=== PATIENT | female | born 1945 | race Caucasian/White ===

== ENCOUNTER 2021-12-05 08:07 | Outpatient (CLI) | payer MEDICARE, BC, SELFPAY ==
[2021-12-05 12:41] LABS: Chloride* 101 mmol/L (96-114); Potassium* 3.7 mmol/L (3.6-5.1); Sodium* 140 mmol/L (135-149)
[2021-12-05 12:44] LABS: Carbon Dioxide* 29 mmol/L (20-32); Cholesterol* 148 mg/dL (90-199); Creatinine* 0.7 mg/dL (0.5-1.5); Estimated Glomerular Filt Rate 90 ml/min
[2021-12-05 12:45] LABS: Blood Urea Nitrogen* 12 mg/dL (7-30); Calcium* 9.4 mg/dL (8.4-10.6); Glucose* 103 mg/dL (60-115); HDL Cholesterol* 36 mg/dL (>=50); LDL Cholesterol Calculated 82 mg/dL (<100); Triglycerides* 149 mg/dL (40-149)
[2021-12-05 13:11] LABS: TSH With Reflex to FT4* 0.054 uIU/mL (0.270-4.200)
[2021-12-05 14:06] LABS: Free T4 Free Thyroxine* 1.19 ng/dL (0.70-1.85)
== END 2021-12-05 08:08 | disposition home or self-care (01) ==
PROVIDERS: PCP Family Medicine; Visit Provider Family Medicine
DX: I10 Essential (primary) hypertension (principal); E78.5 Hyperlipidemia, unspecified; E03.9 Hypothyroidism, unspecified
CPT/HCPCS: 80048; 80061; 84439; 84443; 84480

== ENCOUNTER 2023-05-22 13:01 | Outpatient (CLI) | payer MEDICARE, BC, SELFPAY | END 2023-05-22 13:02 | disposition home or self-care (01) | LOC: NFLDREF 05-23 06:10 | PROVIDERS: PCP Family Medicine; Referring Provider Family Medicine; Visit Provider Physician Assistant | DX: R30.0 Dysuria (principal); R35.0 Frequency of micturition | CPT/HCPCS: 87086 ==

== ENCOUNTER 2023-06-03 08:52 | Outpatient (CLI) | payer MEDICARE, BC, SELFPAY | END 2023-06-03 08:53 | disposition home or self-care (01) | PROVIDERS: PCP Family Medicine; Visit Provider Family Medicine | DX: E78.5 Hyperlipidemia, unspecified (principal); I10 Essential (primary) hypertension; E03.9 Hypothyroidism, unspecified | CPT/HCPCS: 80048; 80061; 84443 ==

== ENCOUNTER 2023-08-27 10:42 | Outpatient (CLI) | payer MEDICARE, BC, SELFPAY ==
--- OUTSIDE RECORDS SUMMARY | 2023-08-27 10:44 | XMS_ITS | Clinical Summary ---
Author Organization [facility] Address [address] [place] [address] Care Team Providers Care Machine Stapler Name Role Phone Rafael Guerrero MD Primary Care Provider [phone] Allergies Active Allergy Reactions Criticality Noted Date Comments Oxycodone Other (See Comments) 06/14/2020 hallucinations Medications Medication Sig Dispensed Refills Start Date End Date Status calcium carbonate (OS-CARLOTTA 500 MG ASA'CARSARMIUT. CA) 500 MG tablet Take 500 mg by mouth 2 times daily Active [place]-3 Fatty Acids (OMEGA-3 FISH OIL PO) Take 1 g by mouth daily Active FLUOXETINE HCL PO Take 40 mg by mouth daily Active LEVOTHYROXINE SODIUM PO Take 125 mcg by mouth daily Active METOPROLOL TARTRATE PO Take 25 mg by mouth 2 times daily Active OMEPRAZOLE PO Take 20 mg by mouth every morning Active SIMVASTATIN PO Take 20 mg by mouth At Bedtime Active order for DMEIndications:Stat us post total right knee replacement Equipment being ordered: Walker Wheels (E0155) and Walker ([id number]) Treatment Diagnosis: gait instability 1 each 0 03/27/2015 Active Multiple Vitamins-Minerals (MULTIVITAMIN WOMEN 50+) TABS Take by mouth daily Active cholecalciferol (VITAMIN D3) 25 mcg (1000 units) capsule Take 1-2 capsules by mouth daily Active aspirin (ASA) 325 MG EC tabletIndications:S tatus post total knee replacement, unspecified laterality Take 1 tablet (325 mg) by mouth daily 30 tablet 07/10/2020 Active senna-docusate (SENOKOT-S/PERICOLA CE) 8.6-50 MG tabletIndications:S tatus post total knee replacement, unspecified laterality Take 1-2 tablets by mouth 2 times daily Take while on oral narcotics to prevent or treat constipation. 30 tablet 07/10/2020 Active acetaminophen (TYLENOL) 325 MG tabletIndications:S tatus post total knee replacement, unspecified laterality Take 2 tablets (650 mg) by mouth every 4 hours as needed for other (mild pain) 100 tablet 07/10/2020 Active HYDROmorphone (DILAUDID) 2 MG tabletIndications:S tatus post total knee replacement, unspecified laterality Take 1 tablet (2 mg) by mouth every 3 hours as needed for severe pain 40 tablet 07/10/2020 Active Active Problems Problem Noted Date Diagnosed Date S/P total knee arthroplasty 07/10/2020 S/P TKR (total knee replacement) 03/27/2015 Social History Tobacco Use Types Packs/Day Years Used Date Smoking Tobacco: Never Smokeless Tobacco: Never Alcohol Use Standard Drinks/Week Comments Yes 0 (1 standard drink = 0.6 oz pur e alcohol) Occas Adolescent Education Answer Date Record ed Getting School Help Needed Not on file 11/22 Sex and Gender Information Value Date Recorded Sex Assigned at Not on file Gender Identity Not on file Sexual Orientation Not on file Last Filed Vital Signs Vital Sign Reading Time Taken Comments Blood Pressure 150/61 07/11/2020 7:56 AM CDT Pulse 62 07/11/2020 7:56 AM CDT Temperature 36.6 ??C (97.9 ??F) 07/11/2020 7:56 AM CD T Respiratory Rate 16 07/11/2020 7:56 AM CDT Oxygen Saturation 95% 07/11/2020 7:56 AM CDT Inhaled Oxygen Concentration - - Weight 107 kg (236 lb) 07/10/2020 9:08 AM CDT Height 165.1 cm (5' 5) 07/10/2020 9:08 AM CDT Body Mass Index 39.27 07/10/2020 9:08 AM CDT Plan of Treatment Not on file Medical Devices Implanted Type Area Erosion Control Specialist Device Identifier Shelf Expiration Date Model / Serial / Lot Bone Cement Simplex W/Tobramycin 6197-9-001 Implanted:Qty : 1 on 07/10/2020 by Cesar Kenney MD at [facility] Cement, Bone Left: Knee [employer] 06/30/2021 6197-9-001 / / [id number] Imp Patella Zim Knee All Samaria 32mm 66-0826-163-3 2 Implanted:Qty : 1 on 07/10/2020 by Cesar Kenney MD at [facility] Total Joint Componen t/Insert Left: Knee [employer] [id number] 05/24/2028 24-5558-984-3 2 / / [id number] Imp Tibial Zim Psn Laundry Presser Stm 5deg Sz El 97-5317-536-0 1 Implanted:Qty : 1 on 07/10/2020 by Cesar Kenney MD at [facility] Total Joint Componen t/Insert Left: Knee [employer] [id number] 12/16/2029 19-3244-837-0 1 / / [id number] Imp Comp Fem Zim Psn Ps Cmt Narrow Sz 7 Lt 33-0443-828-0 1 Implanted:Qty : 1 on 07/10/2020 by Cesar Kenney MD at [facility] Total Joint Componen t/Insert Left: Knee [employer] [id number] 09/19/2029 85-6090-858-0 1 / / [id number] Bone Cement Simplex Full Dose 6191-1-001 Implanted:Qty : 1 on 03/27/2015 by Cesar Kenney MD at [facility] Right: Knee [employer] 09/30/2017 6191-1-001 / / [id number] Imp Comp Femoral E Rt [id number] 2 Implanted:Qty : 1 on 03/27/2015 by Cesar Kenney MD at [facility] Right: Knee [employer] 11/30/202441-3509-793-5 2 / / [id number] Imp Comp Tibial Stemmed Zim Nexgen Size 3 Implanted:Qty : 1 on 03/27/2015 by Cesar Kenney MD at [facility] Right: Knee [employer] 11/30/2024 [id number] 1 [id number] Imp Art Surface Zim Nexgen Lps Ef 3-4 10mm 35-3689-653-1 0 Implanted:Qty : 1 on 03/27/2015 by Cesar Kenney MD at [facility] Right: Knee [employer] 09/24/202269-6472-367-1 0 / / [id number] Imp Comp Patella Zim Nexgen 8.5x32mm Implanted:Qty : 1 on 03/27/2015 by Cesar Kenney MD at [facility] Right: Knee [employer] 12/31/2022 [id number] 2 [id number] Persona Articular Surface Fixed Bearing Posterior Stabilized (Ps) Left 10mm Height Implanted:Qty : 1 on 07/10/2020 by Cesar Kenney MD at [facility] Left: Knee [employer] [id number] 06/30/2021 [id number] / / [id number] Advance Directives For more information, please contact: [phone] * Full Code (Latest Code Status on File) Date Activated Date Inactivated Comments 07/10/2020 4:46 PM 07/11/2020 1:20 PM All basic an d advanced life-sustaining interventions are performed as appropriate Question Answer Comments Code status determined by: Unable to dis cuss and no AD/POLST on file; continue PREVIOUSLY ORDERED code status * Full Code Date Activated Date Inactivated Comments 03/27/2015 11:51 AM 03/29/2015 5:49 PM Care Teams Machine Stapler Relationship Specialty Start Date End Date Rafael Guerrero MD PCP - General Family Medicine 06/05/20
--- OUTSIDE RECORDS SUMMARY | 2023-08-27 10:45 | XMS_ITS | Encounter Summary ---
Author Organization [facility] Address [address] [place] [address]. [place] [address] Care Team Providers Care Pastoral Worker Name Role Phone Doctor, None MD Primary Care Provider Unavailabl e Rafael Guerrero MD Primary Care Provider [phone] Encounter Details Date Type Department Care Team (Late st Contact Info) Description 03/01/2015 Orders Only [facility] [address] [place] [phone] Cesar Kenney MD [facility] [address] [facility] [address] [place] [address] Pre-operative laboratory examination (Primary Dx) Social History Tobacco Use Types Packs/Day Years Used Date Smoking Tobacco: Never Assessed Sex and Gender Information Value Date Recorded Sex Assigned at Not on file Gender Identity Not on file Sexual Orientation Not on file documented as of this encounter Plan of Treatment Not on file documented as of this encounter Results * Methicillin Resistant Staph Aureus PCR (03/16/2015 12:15 PM [facility]) Specimen Description [facility] Methicillin Resist/Sens S. aureus PCR Negative MRSA Negative: SA Positive MRSA target DNA not detected, presumed negative for MRSA colonization or the number of bacteria present may be below the limit of detection. Staphylococcus aureus target DNA detected, presumed positive for SA colonization. A positive test does not necessarily indicate the presence of viable organisms. It is, however, presumptive for the presence of SA. ??This result does not preclude MRSA nasal colonization. FDA approved assay performed using eigital GeneXpert(R) real-time PCR. [facility]G [facility] 03/16/2015 12:1 5 PM [facility] 03/16/2015 3:04 PM [facility] Cesar Kenney MD LAB - MICRO GENE RAL ORDERABLES [facility] [address] [place] [address], [facility] [address] [phone] documented in this encounter Visit Diagnoses Diagnosis Pre-operative laboratory examination- Primary Pre-procedural laboratory examination documented in this encounter Care Teams Pastoral Worker Relationship Specialty Start Date End Date Doctor, Rosalba, PCP - General 02/23/15 10/31/16 Rafael Guerrero MD PCP - General Family Medicine 06/05/20 documented as of this encounter
--- OUTSIDE RECORDS SUMMARY | 2023-08-27 10:45 | XMS_ITS | Referral Summary ---
Author Organization [facility] Address [address] [place] [address] Care Team Providers Care Consulting Database Administrator Name Role Phone Rafael Guerrero MD Primary Care Provider [phone] Allergies Active Allergy Reactions Criticality Noted Date Comments Oxycodone Other (See Comments) 06/14/2020 hallucinations Medications Medication Sig Dispensed Refills Start Date End Date Status calcium carbonate (OS-CARLOTTA 500 MG NOOKSACK. CA) 500 MG tablet Take 500 mg by mouth 2 times daily Active [place]-3 Fatty Acids (OMEGA-3 FISH OIL PO) Take [...] on file Medical Devices Implanted Type Area Wood Finisher Device Identifier Shelf Expiration Date Model / Serial / Lot Bone Cement Simplex W/Tobramycin 6197-9-001 Implanted:Qty : 1 on 07/10/2020 by Cesar Kenney MD at [facility] Cement, Bone Left: Knee [employer] 06/30/2021 6197-9-001 / / [id number] Imp Patella Zim Knee All [place] 32mm 18-5535-829-3 2 Implanted:Qty : 1 on 07/10/2020 by Cesar Kenney MD at [facility] Total Joint Componen t/Insert Left: Knee [employer] [id number] 05/24/2028 36-8060-087-3 2 / / [id number] Imp Tibial Zim Psn Wire Spooler Stm 5deg Sz El 92-5545-086-0 1 Implanted:Qty : 1 on 07/10/2020 by Cesar Kenney MD at [facility] Total Joint Componen t/Insert Left: Knee [employer] [id number] 12/16/2029 06-1352-263-0 1 / / [id number] Imp Comp Fem Zim Psn Ps Cmt Narrow Sz 7 Lt 75-6304-170-0 1 Implanted:Qty : 1 on 07/10/2020 by Cesar Kenney MD at [facility] Total Joint Componen t/Insert Left: Knee [employer] [id number] 09/19/2029 63-4459-286-0 1 / / [id number] Bone Cement Simplex Full Dose 6191-1-001 Implanted:Qty : 1 on 03/27/2015 by Cesar Kenney MD at [facility] Right: Knee [employer] 09/30/2017 6191-1-001 / / [id number] Imp Comp Femoral E Rt 62-2398-431-5 2 Implanted:Qty : 1 on 03/27/2015 by Cesar Kenney MD at [facility] Right: Knee [employer] 11/30/202416-9421-372-5 2 / / [id number] Imp Comp Tibial Stemmed Zim Nexgen Size 3 Implanted:Qty : 1 on 03/27/2015 by Cesar Kenney MD at [facility] Right: Knee [employer] 11/30/2024 10-4237-104-0 1 [id number] Imp Art Surface Zim Nexgen Lps Ef 3-4 10mm 58-7820-211-1 0 Implanted:Qty : 1 on 03/27/2015 by Cesar Kenney MD at [facility] Right: Knee [employer] 09/24/202226-0331-984-1 0 / / [id number] Imp Comp Patella Zim Nexgen 8.5x32mm Implanted:Qty : 1 on 03/27/2015 by Cesar Kenney MD at [facility] Right: Knee [employer] 12/31/2022 35-2329-941-3 2 [id number] Persona Articular Surface Fixed Bearing Posterior Stabilized (Ps) Left 10mm Height Implanted:Qty : 1 on 07/10/2020 by Cesar Kenney MD at [facility] Left: Knee [employer] [id number] 06/30/2021 [id number] / / [id number] Advance Directives For more information, please contact: [phone] * Full Code (Latest Code Status on [...] 11:51 AM 03/29/2015 5:49 PM Care Teams Consulting Database Administrator Relationship Specialty Start Date End Date Rafael Guerrero MD PCP - General Family Medicine 06/05/20
--- OUTSIDE RECORDS SUMMARY | 2023-08-27 10:45 | XMS_ITS | Clinical Summary ---
Author Organization [facility] Address [place], [place] [address] Care Team Providers Care Piano Refinisher Name Role Phone Jack Guerrero MD Primary Care Provider [phone] Allergies No known active allergies Medications Medication Sig Dispensed Refills Start Date End Date Status omeprazole (PRILOSEC) 20 mg capsule Take 1 capsule by mouth once daily before a meal. 0 05/21/2013 Active levothyroxine (SYNTHROID) 125 mcg tablet Take 1 tablet by mouth before breakfast. 0 05/21/2013 Active FLUoxetine (PROZAC) 40 mg capsule Take 1 capsule by mouth every morning. 0 05/21/2013 Active aspirin enteric coated (ASPIRIN LOW DOSE) 81 mg tablet Take 162 mg by mouth once daily with a meal. 0 05/21/2013 Active omega-3 fatty acids-vitamin E (FISH OIL) 1,000 mg cap Take 1 capsule by mouth once daily. 0 05/21/2013 Active metoprolol (LOPRESSOR) 25 mg tablet Take 1 tablet by mouth 2 times daily. 0 05/21/2013 Active hydroCHLOROthiazide (HCTZ) 25 mg tablet Take 25 mg by mouth once daily. Active simvastatin (ZOCOR) 20 mg tablet Take 20 mg by mouth at bedtime. Active Active Problems Problem Noted Date Diagnosed Date Age-related nuclear cataract, left 08/13/2019 Age-related nuclear cataract, right 07/30/2019 Routine adult health maintenance 05/21/2013 Overview: Colonoscopy 05/2013 normal repeat in 10 years Social History Tobacco Use Types Packs/Day Years Used Date Smoking Tobacco: Never Smokeless Tobacco: Never Tobacco Cessation:Counseling Given: No Alcohol Use Standard Drinks/Week Comments Not Currently 0 (1 standard drink = 0.6 oz pur e alcohol) Sex and Gender Information Value Date Recorded Sex Assigned at Not on file Gender Identity Not on file Sexual Orientation Not on file Obstetrics History Last Filed Vital Signs Vital Sign Reading Time Taken Comments Blood Pressure 134/66 08/24/2019 10:18 AM CDT Pulse 60 08/24/2019 10:18 AM CDT Temperature 36.7 ??C (98 ??F) 08/24/2019 9:48 AM CDT Respiratory Rate 16 08/24/2019 10:18 AM CDT Oxygen Saturation 99% 08/24/2019 10:18 AM CDT Inhaled Oxygen Concentration - - Weight 114 kg (251 lb 6.4 oz) 08/24/2019 8:07 AM CDT Height 164.5 cm (5' 4.76) 08/24/2019 8:07 AM CD T Body Mass Index 42.14 08/24/2019 8:07 AM CDT Plan of Treatment Health Maintenance Due Date Last Done Comments Tdap 1956 Depression screening for age 12+ 1957 BMI (ht and wt on same day) for age 18+ 06/12/1963 Hepatitis C screening for age 18-79 06/12/1963 Tetanus booster 1965 Zoster (shingles) series for age 50+ (1 of 2) 06/11/18 96 DEXA/DXA scan for age 65+ 2010 Pneumococcal series for age 65+ (1 of 1 - PCV) 011 COVID-19 vaccine series (2022-24 season) 3 Influenza for age 65+ 11/02/2023 Medical Devices Implanted Type Area Wax Ball Molder Device Identifier Shelf Expiration Date Model / Serial / Lot Iol Union +21.5 Tecnis Zcb00 - [id number] Implanted:Qty : 1 on 08/24/2019 by Mark Mclean MD at [facility] Opthalmology Implants Left: Eye [employer] 03/06/2023 ZCB00 21.5# / [id number] 1 / Iol Union +22 Tecnis Zcb00 - [id number] Implanted:Qty : 1 on 08/03/2019 by Mark Mclean MD at [facility] Right: Eye [employer] 03/22/2023 ZCB00 22.0# / [id number] 1 / Advance Directives * Full Code (Latest Code Status on File) Date Activated Date Inactivated Comments 08/24/2019 8:04 AM 08/24/2019 12:36 PM Question Answer Comments Code Status Discussion: Not Discussed * Full Code Date Activated Date Inactivated Comments 08/03/2019 7:55 AM 08/03/2019 2:26 PM Question Answer Comments Code Status Discussion: Not Discussed Care Teams Piano Refinisher Relationship Specialty Start Date End Date Jack Guerrero MD PCP - General Family Practice 07/30/19
--- OUTSIDE RECORDS SUMMARY | 2023-08-27 10:45 | XMS_ITS | Encounter Summary ---
Author Organization [facility] Address [address] [place] [address] Care Team Providers Care Marketing Automation Analyst Name Role Phone Rafael Guerrero MD Primary Care Provider [phone] Encounter Details Date Type Department Care Team (Late st Contact Info) Description 06/12/2020 Orders Only [facility] [address] [place] [address] Cesar Kenney MD [facility] [address] [place] [address] [place] [address] Pre-operative laboratory examination (Primary Dx) Social History Tobacco Use Types Packs/Day Years Used Date Smoking Tobacco: Never Alcohol Use Standard Drinks/Week Comments Yes 0 (1 standard drink = 0.6 oz pur e alcohol) Occas Sex and Gender Information Value Date Recorded Sex Assigned at Not on file Gender Identity Not on file Sexual Orientation Not on file COVID-19 Exposure Response Date Recorded In the last month, have you been in contact with someone who was confirmed or suspected to have Coronavirus / COVID-19? No / Unsure 06/14/2020 2:46 PM CDT documented as of this encounter Plan of Treatment Not on file documented as of this encounter Results * Asymptomatic COVID-19 Virus (Coronavirus) by PCR (07/06/2020 9:11 AM CDT) COVID-19 Virus PCR to [facility] - Source Nasopharyngeal 07/06/2020 9:16 AM CDT [facility] COVID-19 Virus PCR to [facility] - Result Test received-See reflex to IDDL test SARS CoV2 (COVID-19) Virus RT-PCR 07/06/2020 12:48 PM CDT [facility] Specimen from nasopharyngeal structure (specimen) 07/06/2020 9:11 AM CDT 07/06/2020 9:16 AM CDT Cesar Kenney MD LAB - MICRO GENE RAL ORDERABLES [facility] [address] [place] [address], [facility] [address] [place] [address] documented in this encounter Visit Diagnoses Diagnosis Pre-operative laboratory examination- Primary Pre-procedural laboratory examination documented in this encounter Care Teams Marketing Automation Analyst Relationship Specialty Start Date End Date Rafael Guerrero MD PCP - General Family Medicine 06/05/20 documented as of this encounter
--- NOTE | 2023-08-27 11:30 | CRLHL7_ITS ---
For Patients: As a result of the Century Cures Act, medical imaging exams and procedure reports are released immediately into your electronic medical record. You may view this report before your referring provider. If you have questions, please contact your health care provider. BILATERAL SCREENING MAMMOGRAM WITH COMPUTER-AIDED DETECTION AND TOMOSYNTHESIS TECHNIQUE: CC and MLO views were obtained. These mammographic images have been obtained using full-field digital technique. These mammographic images were interpreted with the benefit of computer-aided detection. Breast Tomosynthesis was used in this interpretation. COMPARISON FILM: 06/26/20, 01/02/18, 12/31/16. FINDINGS: The breasts are almost entirely fatty. IMPRESSION: There is no radiographic evidence for malignancy. ASSESSMENT: BI-RADS Category 1: Negative RECOMMENDATION: Routine screening mammogram in 1 year. A lay language report of this examination will be provided to the patient. Kye Ridley M.D. Diagnostic Radiologist [email or web address] SP/Dictated by: Kye Ridley MD @ 09/02/2023 12:26:00 PM (Electronically Signed)
== END 2023-08-27 10:43 | disposition home or self-care (01) ==
LOC: MAMMO 10:43
PROVIDERS: PCP Family Medicine; Visit Provider Family Medicine
DX: Z12.31 Encounter for screening mammogram for malignant neoplasm of breast (principal)
CPT/HCPCS: 77063; 77067

== ENCOUNTER 2024-04-06 08:03 | Emergency (ER) | payer MEDICARE, BC, SELFPAY ==
[2024-04-06] VITALS (7 sets, daily range): BP systolic 153–183; BP diastolic 75–94; PULSE 48–58; RESP 20–24; TEMP 36.2; O2SAT 92–94; BMI 41.2
--- OUTSIDE RECORDS SUMMARY | 2024-04-06 08:05 | XMS_ITS | Clinical Summary ---
Author Organization [facility] Address [address] [place] [address] Care Team Providers Care Sales Account Leader Name Role Phone Rafael Guerrero MD Primary Care Provider [phone] Allergies Active Allergy Reactions Criticality Noted Date Comments Oxycodone Other (See Comments) 06/14/2020 hallucinations Medications calcium carbonate (OS-CARLOTTA 500 MG [place]. CA) 500 MG tablet Take 500 mg by mouth 2 times daily Active Woodman-3 Fatty Acids (OMEGA-3 FISH OIL PO) Take [...] by mouth At Bedtime Active order for DMEIndications:S tatus post total right knee replacement Equipment being ordered: Walker Wheels (E0155) and Walker (E0135) Treatment Diagnosis: gait instability 1 each 0 6 Active Multiple Vitamins-Mineral s (MULTIVITAMIN WOMEN 50+) TABS Take by mouth daily Active cholecalciferol (VITAMIN D3) 25 mcg (1000 units) capsule Take 1-2 capsules by mouth daily Active aspirin (ASA) 325 MG EC tabletIndication s:Status post total knee replacement, unspecified laterality Take 1 tablet (325 mg) by mouth daily 30 tablet 1 Active senna-docusate (SENOKOT-S/PERIC OLACE) 8.6-50 MG tabletIndication s:Status post total knee replacement, unspecified laterality Take 1-2 tablets by mouth 2 times daily Take while on oral narcotics to prevent or treat constipation. 30 tablet 1 Active acetaminophen (TYLENOL) 325 MG tabletIndication s:Status post total knee replacement, unspecified laterality Take 2 tablets (650 mg) by mouth every 4 hours as needed for other (mild pain) 100 tablet 1 Active HYDROmorphone (DILAUDID) 2 MG tabletIndication s:Status post total knee replacement, unspecified laterality Take 1 tablet (2 mg) by mouth every 3 hours as needed for severe pain 40 tablet 1 Active Active Problems Problem Noted Date Diagnosed [...] School Help Needed Not on file 11/22 Comments No Sex and Gender Information Value Date Recorded Sex Assigned at Not on file Legal Sex Female 9:35 AM ARCHITECT MARINE Gender Identity Not on file Sexual Orientation Not on file Last Filed Vital Signs Vital Sign Reading Time Taken Comments Blood Pressure 150/61 07/11/2020 7:56 AM CDT Pulse 62 07/11/2020 7:56 AM CDT Temperature 36.6 C (97.9 F) 07/11/2020 7:56 AM CDT Respiratory Rate 16 07/11/2020 7:56 AM CDT Oxygen Saturation 95% 07/11/2020 7:56 AM CDT Inhaled Oxygen Concentration - - Weight 107 kg (236 lb) 07/10/2020 9:08 AM CDT Height 165.1 cm (5' 5) 07/10/2020 9:08 AM CDT Body Mass Index 39.27 07/10/2020 9:08 AM CDT Plan of Treatment Not on file Medical Devices Implanted Type Area Concrete Inspector Device Identifier Shelf Expiration Date Model / Serial / Lot Bone Cement Simplex W/Tobramycin 6197-9-001 Implanted:Qty : 1 on 07/10/2020 by Cesar Kenney MD at [facility] Cement, Bone Left: Knee [employer] 06/30/2021 6197-9-001 / / [id number] Imp Patella Zim Knee All [place] 32mm 23-3760-104-3 2 Implanted:Qty : 1 on 07/10/2020 by Cesar Kenney MD at [facility] Total Joint Componen t/Insert Left: Knee [employer] [id number] 05/24/2028 62-9217-919-3 2 / / [id number] Imp Tibial Zim Psn Pediatrician/Medical Doctor Stm 5deg Sz El 56-0686-318-0 1 Implanted:Qty : 1 on 07/10/2020 by Cesar Kenney MD at [facility] Total Joint Componen t/Insert Left: Knee [employer] [id number] 12/16/2029 07-6897-948-0 1 / / [id number] Imp Comp Fem Zim Psn Ps Cmt Narrow Sz 7 Lt 09-2527-101-0 1 Implanted:Qty : 1 on 07/10/2020 by Cesar Kenney MD at [facility] Total Joint Componen t/Insert Left: Knee [employer] [id number] 09/19/2029 66-4720-351-0 1 / / [id number] Bone Cement Simplex Full Dose 6191-1-001 Implanted:Qty : 1 on 03/27/2015 by Cesar Kenney MD at [facility] Right: Knee [employer] 09/30/2017 6191-1-001 / / [id number] Imp Comp Femoral E Rt 51-7588-698-5 2 Implanted:Qty : 1 on 03/27/2015 by Cesar Kenney MD at [facility] Right: Knee [employer] 11/30/2024 64-9389-419-5 2 / / [id number] Imp Comp Tibial Stemmed Zim Nexgen Size 3 Implanted:Qty : 1 on 03/27/2015 by Cesar Kenney MD at [facility] Right: Knee [employer] 11/30/2024 54-7980-908-0 1 [id number] Imp Art Surface Zim Nexgen Lps Ef 3-4 10mm 41-2182-087-1 0 Implanted:Qty : 1 on 03/27/2015 by Cesar Kenney MD at [facility] Right: Knee [employer] 09/24/202250-8354-580-1 0 / [id number] Imp Comp Patella Zim Nexgen 8.5x32mm Implanted:Qty : 1 on 03/27/2015 by Cesar Kenney MD at [facility] Right: Knee [employer] 12/31/202282-9149-615-3 2 / [id number] Persona Articular Surface Fixed Bearing Posterior Stabilized (Ps) Left 10mm Height Implanted:Qty : 1 on 07/10/2020 by Cesar Kenney MD at [facility] Left: Knee [employer] [id number] 06/30/2021 [id number] / / [id number] Insurance MEDICARE [facility] Advance Directives For more information, please contact: [phone] * Full Code (Latest Code Status on File) Date Activated Date Inactivated Comments 07/10/2020 4:46 PM 07/11/2020 1:20 PM All basic a nd advanced life-sustaining interventions are performed as appropriate Question Answer Comments Code status determined by: Unable to dis cuss and no AD/POLST on file; continue PREVIOUSLY ORDERED code status * Full Code Date Activated Date Inactivated Comments 03/27/2015 11:51 AM 03/29/2015 5:49 PM Care Teams Sales Account Leader Relationship Specialty Start Date End Date Rafael Guerrero MD PCP - General Family Medicine 06/05/20
--- OUTSIDE RECORDS SUMMARY | 2024-04-06 08:05 | XMS_ITS | Encounter Summary ---
Author Organization [facility] Address [address] [place] [address] Care Team Providers Care Cio Name Role Phone Rafael Guerrero MD Primary Care Provider [phone] Encounter Details Date Type Department Care Team (Late st Contact Info) Description 06/12/2020 Orders Only [facility] [address] [place] [address] Cesar Kenney MD [facility] [address] [place] [address] Pre-operative laboratory examination (Primary Dx) Social History Tobacco Use Types Packs/Day Years Used Date Smoking Tobacco: Never Alcohol Use Standard Drinks/Week Comments Yes 0 (1 standard drink = 0.6 oz pur e alcohol) Occas Comments No Sex and Gender Information Value Date Recorded Sex Assigned at Not on file 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 Gender Identity Not on file Sexual Orientation [...] - Source Nasopharyngeal 07/06/2020 9:16 AM CDT [facility] COVID-19 Virus PCR to [facility] - Result Test received-See reflex to IDDL test SARS CoV2 (COVID-19) Virus RT-PCR 07/06/2020 12:48 PM CDT [facility] Specimen from nasopharyngeal structure (specimen) 07/06/2020 9:11 AM CDT 07/06/2020 9:16 AM CDT us Cesar Kenney MD LAB - MICRO GENERAL PALMER OBRIEN Final Result [facility] [address] [place] [address], [facility] [address] [place] [address] documented in this encounter Visit Diagnoses Diagnosis Pre-operative laboratory examination- Primary Pre-procedural laboratory examination documented in this encounter Care Teams Cio Relationship Specialty Start Date End Date Rafael Guerrero MD PCP - General Family Medicine 06/05/20 documented as of this encounter
--- OUTSIDE RECORDS SUMMARY | 2024-04-06 08:06 | XMS_ITS | Encounter Summary ---
Author Organization [facility] Address [address] [place] [address] Care Team Providers Care Climatology Professor Name Role Phone Doctor, None MD Primary Care Provider Unavailabl e Rafael Guerrero MD Primary Care Provider [phone] Encounter Details Date Type Department Care Team (Late st Contact Info) Description 03/01/2015 [facility] [address] [place] [id number] Cesar Kenney MD [facility] [address] [place] [address] Pre-operative laboratory examination (Primary Dx) Social History Tobacco Use Types Packs/Day Years Used Date Smoking Tobacco: Never Assessed Comments No Sex and Gender Information Value Date Recorded Sex Assigned at Not on file 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 aureus PCR Negative MRSA [...] however, presumptive for the presence of SA. This result does not preclude MRSA nasal colonization. FDA approved assay performed using [employer] buy tea GeneXpert(R) real-time PCR. NEG [facility] 03/16/2015 12:1 5 PM PREDICTIVE MAINTENANCE SPECIALIST 03/16/2015 3:04 PM PREDICTIVE MAINTENANCE SPECIALIST us Cesar Kenney MD LAB - MICRO GENERAL [place] OBRIEN Final Result [facility] [address] [place] [address], [facility] [address] [place] [address], [facility] [phone] documented in this encounter Visit Diagnoses Diagnosis Pre-operative laboratory examination- Primary Pre-procedural laboratory examination documented in this encounter Care Teams Climatology Professor Relationship Specialty Start Date End Date Doctor, None, PCP - General 02/23/15 10/31/16 Rafael Guerrero MD PCP - General Family Medicine 06/05/20 documented as of this encounter
--- OUTSIDE RECORDS SUMMARY | 2024-04-06 08:06 | XMS_ITS | Referral Summary ---
Author Organization [facility] Address [address] [place] [address] Care Team Providers Care School Bus Technician Name Role Phone Rafael Guerrero MD Primary Care Provider [phone] Allergies Active Allergy Reactions Criticality Noted Date Comments Oxycodone Other (See Comments) 06/14/2020 hallucinations Medications calcium carbonate (OS-CARLOTTA 500 MG [place]. 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 [id number] 05/24/2028 96-3140-197-3 2 / / [id number] Imp Tibial Zim Psn Nursing Faculty Stm 5deg Sz El 94-5556-440-0 1 Implanted:Qty : 1 on 07/10/2020 by Cesar Kenney MD at [facility] Total Joint Componen t/Insert Left: Knee [employer] [id number] 12/16/2029 54-2024-631-0 1 / / [id number] Imp Comp Fem Zim Psn Ps Cmt Narrow Sz 7 Lt 13-7069-512-0 1 Implanted:Qty : 1 on 07/10/2020 by Cesar Kenney MD at [facility] Total Joint Componen t/Insert Left: Knee [employer] [id number] 09/19/2029 14-4241-191-0 1 / / [id number] Bone Cement Simplex Full Dose 6191-1-001 Implanted:Qty : 1 on 03/27/2015 by Cesar Kenney MD at [facility] Right: Knee [employer] 09/30/2017 6191-1-001 / / [id number] Imp Comp Femoral E Rt 82-3450-149-5 2 Implanted:Qty : 1 on 03/27/2015 by Cesar Kenney MD at [facility] Right: Knee [employer] 11/30/2024 91-2269-292-5 2 / / [id number] Imp Comp Tibial Stemmed Zim Nexgen Size 3 Implanted:Qty : 1 on 03/27/2015 by Cesar Kenney MD at [facility] Right: Knee [employer] 11/30/2024 54-2159-974-0 1 [id number] Imp Art Surface Zim Nexgen Lps Ef 3-4 10mm 64-8260-785-1 0 Implanted:Qty : 1 on 03/27/2015 by Cesar Kenney MD at [facility] Right: Knee [employer] 09/24/202284-5801-669-1 0 / [id number] Imp Comp Patella Zim Nexgen 8.5x32mm Implanted:Qty : 1 on 03/27/2015 by Cesar Kenney MD at [facility] Right: Knee [employer] 12/31/202226-6360-450-3 2 / [id number] Persona Articular Surface Fixed Bearing Posterior Stabilized (Ps) Left 10mm Height Implanted:Qty : 1 on 07/10/2020 by Cesar Kenney MD at [facility] Left: Knee [employer] [id number] 06/30/2021 [id number] / / [id number] Insurance MEDICARE [facility] Advance Directives For more information, please contact: [phone] * Full Code (Latest Code Status on [...] 11:51 AM 03/29/2015 5:49 PM Care Teams School Bus Technician Relationship Specialty Start Date End Date Rafael Guerrero MD PCP - General Family Medicine 06/05/20
--- OUTSIDE RECORDS SUMMARY | 2024-04-06 08:06 | XMS_ITS | Clinical Summary ---
Author Organization [facility] Address [place], [place] [address] Care Team Providers Care Product Safety And Standards Engineer Name Role Phone Jack Guerrero MD Primary Care Provider [phone] Allergies No known active allergies Medications omeprazole (PRILOSEC) 20 mg capsule Take 1 [...] mouth 2 times daily. 0 05/21/2013 Active hydroCHLOROthia zide (HCTZ) 25 mg tablet Take 25 mg by mouth once daily. Active simvastatin (ZOCOR) 20 mg tablet Take 20 mg by mouth at bedtime. Active Active Problems Problem Noted Date Diagnosed Date Age-related nuclear cataract, left 08/13/2019 Age-related nuclear cataract, right 07/30/2019 Routine adult health maintenance 05/21/2013 Overview (05/21/2013): Colonoscopy 05/2013 normal repeat in 10 years Social History Tobacco Use Types Packs/Day Years Used Date Smoking Tobacco: Never Smokeless Tobacco: Never Tobacco Cessation:Counseling Given: No Alcohol Use Standard Drinks/Week Comments Not Currently 0 (1 standard drink = 0.6 oz pur e alcohol) Comments No Sex and Gender Information Value Date Recorded Sex Assigned at Not on file Legal Sex Female 1:02 PM CDT Gender Identity Not on file Sexual Orientation Not on file Obstetrics History Last Filed Vital Signs Vital Sign Reading Time Taken Comments Blood Pressure 134/66 08/24/2019 10:18 AM CDT Pulse 60 08/24/2019 10:18 AM CDT Temperature 36.7 C (98 F) 08/24/2019 9:48 AM CDT Respiratory Rate 16 [...] for age 18-79 06/12/1963 Tetanus booster 1965 Pneumococcal series for age 50+ (1 of 1 - PCV) 996 Zoster (shingles) series for age 50+ (1 of 2) 06/11/18 96 DEXA/DXA scan for age 65+ 2010 RSV vaccine for adults or pr egnancy (1 - 1-dose 75+ series) 2020 COVID-19 vaccine series ( - 2023-25 season) 4 Influenza for age 65+ 11/02/2023 Medical Devices Implanted Type Area Economic Research Analyst Device Identifier Shelf Expiration Date Model / Serial / Lot Iol [place] +21.5 Irena Zcb00 - [id number] Implanted:Qty : 1 on 08/24/2019 by Mark Mclean MD at [facility] Implants Left: Eye [employer] 03/06/2023 ZCB00 21.5# / [id number] 1 / Iol [place] +22 Tecnis Zcb00 - [id number] Implanted:Qty : 1 on 08/03/2019 by Mark Mclean MD at [facility] Right: Eye [employer] 03/22/2023 ZCB00 22.0# / [id number] 1 / Insurance MEDICARE PART A HB ONLY [employer] [place] BLUE HB ONLY MEDICARE PART B HB ONLY [facility] [employer] Advance Directives * Full Code (Latest Code Status on File) Date Activated Date Inactivated Comments 08/24/2019 8:04 AM 08/24/2019 12:36 PM Question Answer Comments Code Status Discussion: Not Discussed * Full Code Date Activated Date Inactivated Comments 08/03/2019 7:55 AM 08/03/2019 2:26 PM Question Answer Comments Code Status Discussion: Not Discussed Care Teams Product Safety And Standards Engineer Relationship Specialty Start Date End Date Jack Guerrero MD PCP - General Family Practice 07/30/19
--- NOTE | 2024-04-06 08:22 | ED_ITS ---
HPI - General Adult General Chief complaint: Shortness of Breath/Dyspnea Stated complaint: SOB/Gasping Time Seen by Provider: 04/06/24 08:22 History of Present Illness HPI narrative: Patient notes for the past few nights she' s woken up because she can 't breathe. No history asthma /COPD/sleep apnea per patient. Patient traveled back from [place] last week. Notes she's had a cough for the past few weeks. Notes her weight fluctuates a few pounds each week. 78-year-old woman presenting to the emergency department with concern of shortness of breath. Has had a couple of episodes now where will wake up in the middle the night mouth open just feeling she can not breathe. Can ambulate around though and then finally gets better. She does endorse serious snoring. Has never had a sleep study. She says that her doctor has told her that she has crackles in her right base all the time suspected secondary to some residual scarring how she phrases it. Over a very long period of time has also been experiencing increasing dyspnea with exertion that she has chalked up to just been ?fat?. Has not had any fever. Has had a little more cough over the last few weeks. Does not have a diagnosis of heart failure but does have a diagnosis of GERD. No changes in medications. Denies underlying respiratory disease otherwise. Has had maybe some increase in urinary frequency but otherwise no dysuria or urgency. Is describing that lying down lately feels more short of breath. Related Data Home Medications ?Medication ?Instructions ?Recorded ?Confirmed aspirin 81 mg capsule 81 mg PO QDAY 12/05/21 04/06/24 multivitamin 1 tab PO QAM 12/05/21 04/06/24 omega 8-tea-fbb-fish oil 300 1 cap PO BID 12/05/21 04/06/24 mg-1,000 mg capsule (Fish Oil) calcium 650 mg-vitamin D3 12.5 2 tab PO DAILY 06/03/23 04/06/24 mcg-vitamin K 40 mcg chewable tablet (Viactiv) Previous Rx's ?Medication ?Instructions ?Recorded fluoxetine 40 mg capsule 40 mg PO QDAY #90 caps 06/03/23 hydrochlorothiazide 25 mg tablet 25 mg PO BID #180 tabs 06/03/23 levothyroxine 125 mcg tablet 125 mcg PO QDAY #90 tabs 06/03/23 metoprolol tartrate 25 mg tablet 25 mg PO BID #180 tabs 06/03/23 omeprazole 20 mg capsule,delayed 20 mg PO QDAY #90 caps 06/03/23 release simvastatin 20 mg tablet 20 mg PO QHS #90 tabs 06/03/23 Allergies Allergy/AdvReac Type Severity Reaction Status Date / Time No Known Allergies Allergy Verified 04/06/24 08:12 Review of Systems Status of ROS: Reports: 6 or more systems reviewed and unremarkable except as noted in History and below [facility] Medical History Health care directive on file ?Z78.9 - Other specified health status (ICD-10) Surgical History Status post left knee replacement ?Z96.652 - Presence of left artificial knee joint (ICD-10) Status post 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) Status post right knee replacement ?Z96.651 - Presence of right artificial knee joint (ICD-10) Status post bunionectomy ?Z98.890 - Other specified postprocedural states (ICD-10) Status post appendectomy ?Z90.49 - Acquired absence of other specified parts of digestive tract (ICD- 10) History of cholecystectomy ?Z90.49 - Acquired absence of other specified parts of digestive tract (ICD- 10) Family History Other Colon cancer Social History Smoking Status: Never smoker How often do you have a drink containing alcohol: monthly or less How often do you have six or more drinks on one occasion: Weekly AUDIT-C Alcohol total score: 4 Non-prescribed substance use: denies use service: No Exam Narrative: Exam Narrative: Pleasant. Breathing easily. Initial oxygen saturation 94% during our conversation or 96%. Heart is little distant in regular rate and rhythm. Lungs with diffuse trace crepitus. No wheeze. Good air movement though. Lower extremities are without pitting edema. She is well-perfused. Moving all extremities without difficulty. No JVD appreciated Const: Vital Signs, click to edit/add: Vital Signs - 24 hr 04/06/24 11:19 04/06/24 12:22 04/06/24 12:23 Temperature 97.2 F L 97.2 F L Pulse Rate [Pulse Oximeter] 51 L 52 L 52 L Respiratory Rate 22 22 22 Blood Pressure [Ri ght Upper Arm] 172/75 H 153/94 H 153/94 H Pulse Oximetry 94 94 Oxygen Delivery Me thod Room Air Room Air Documenting provider has reviewed patient's vital signs: yes Course Vital Signs Vital signs: Initial Vital Signs Temperature 97.1 F L 04/06/24 08:07 Temperature Source Temporal Artery Scan 04/06/24 08:07 Pulse Rate 58 L 04/06/24 08:07 Respiratory Rate 22 04/06/24 08:07 Blood Pressure 160/83 H 04/06/24 08:07 Blood Pressure Mean 108 H 04/06/24 08:07 Blood Pressure Position Sitting 04/06/24 08:07 Pulse Oximetry 94 04/06/24 08:07 Oxygen Delivery Method Room Air 04/06/24 08:07 Vital Signs Temperature 97.1 F L 04/06/24 08:07 Pulse Rate 58 L 04/06/24 08:07 Respiratory Rate 22 04/06/24 08:07 Blood Pressure 160/83 H 04/06/24 08:07 Pulse Oximetry 94 04/06/24 08:07 Oxygen Delivery Method Room Air 04/06/24 08:07 Temperature 97.2 F L 04/06/24 12:23 Pulse Rate 52 L 04/06/24 12:23 Respiratory Rate 22 04/06/24 12:23 Blood Pressure 153/94 H 04/06/24 12:23 Pulse Oximetry 94 04/06/24 12:22 Oxygen Delivery Method Room Air 04/06/24 12:22 Medications Administered Medications: Discontinued Medications Generic Name Dose Route Start Last Admin Trade Name Freq PRN Reason Stop Dose Admin Furosemide 40 mg 04/06/24 11:15 04/06/24 11:14 Furosemide 10 Mg/Ml Inj IVP 04/06/24 11:16 Not Given ONCE ONE Medical Decision Making MDM Narrative Medical decision making narrative: I suspect a couple of different processes here. Certainly might be waking out of sleep secondary to episodes of sleep apnea. Might have reflux. May have evolving heart failure though over time. May have been an arrhythmia of some sort. Secondary infectious process to like recent influenza or pneumonia. Will begin evaluation. I see pulmonary fibrosis in diagnoses which could explain auscultation today as well. Has never had a cardiac echo. I am not convinced that would benefit from an nebulization. Oxygen level is a little lower from baseline. Have arranged for cardiac echo though it is much later today. Has not demonstrated instability where need to remain in the emergency department until that time. ProBNP is indeterminate at 797. Good renal function. Would be good to begin tracking baseline weights. I do not hear wheeze to make me think that there is reactive airway are would benefit from steroids or inhaler. Might benefit from diuresis. Have ordered for 40 mg of IV Lasix. I think would benefit from pulmonary function testing as well with these diagnoses I am seeing which include pulmonary fibrosis Otherwise well for discharge to return for echocardiogram. Has not demonstrated dysrhythmia/arrhythmia here today other than bradycardia. Is on relatively lower dose metoprolol. Might need to do longer-term rhythm monitoring. See patient discharge plan for further discussion We are testing you with a dose of furosemide. You might benefit from continuing furosemide. I am anticipating you a receiving an echocardiogram at 3:00 p.m.. If that does not work out then 1:00 p.m. tomorrow. Please begin keeping daily weights. I would like you schedule follow-up a since possible with your primary care provider. It sounds as though you would benefit from a study for sleep apnea. You might also benefit from a pulmonary function test. Would review again treatment for your blood pressure. A urine culture will be pending here. If this is positive we will call you to consider treatment. Return otherwise for persistent increasing shortness of breath, chest pain, lightheadedness. Discussed preliminary findings/tech report of echocardiogram with Ms. Weeks. Generally reassuring with an ejection fraction of 65% and absence of significant valvular disease. Final report pending Medical Records Medical records reviewed: Yes I reviewed the patient's medical records Lab Data Lab results reviewed: Yes I reviewed the patient's lab results Labs: Lab Results 04/06/24 04/06/24 04/06/24 Range/Units 08:38 09:15 09:24 WBC 7.74 (4.50-11.00) K/uL RBC 4.32 (4.00-5.20) m/uL Hgb 13.3 (12.0-16.0) gm/dL Hct 40.4 (33.0-51.0) % MCV 94 (80-100) fL MCH 31 (26-34) pg MCHC 33 (32-36) gm/dL RDW Coeff of Vidal 14.3 (11.5-15.5) % Plt Count 274 (140-440) K/uL Neut % (Auto) 61.2 (42.0-72.0) % Lymph % (Auto) 24.2 (20-44) % [place] % (Auto) 8.7 (0.0-11.0) % Eos % (Auto) 5.3 (0.0-7.0) % Baso % (Auto) 0.5 (0.0-3.0) % Neut # (Auto) 4.74 (1.7-7.0) K/uL Lymph # (Auto) 1.87 (0.90-2.90) K/uL [place] # (Auto) 0.70 (0.00-0.90) K/UL Eos # (Auto) 0.41 (0.00-0.50) K/uL Baso # (Auto) 0.04 (0.00-0.30) K/uL Abs Immat Gran (auto) 0.01 (0.00-0.30) K/uL Imm/Tot Granulo (auto) 0.1 % Sodium 138 (135-149) mmol/L Potassium 3.6 (3.6-5.1) mmol/L Chloride 101 (96-114) mmol/L Carbon Dioxide 28 (20-32) mmol/L Anion Gap 9 (7-15) mEq/L BUN 13 (7-30) mg/dL Creatinine 0.8 (0.5-1.5) mg/dL Estimated Creat Clear 40.04 Estimated GFR 75 ml/min Glucose 101 (60-115) mg/dL Calcium 9.2 (8.4-10.6) mg/dL Troponin I < 0.01 L (0.01-0.04) ng/mL NT-Pro-B Natriuret Pep 797 pg/mL Urine Color (Yellow) Urine Appearance (Clear) Urine pH (5.0-8.5) Ur Specific [place] (1.000-1.030) Urine Protein (Negative) Urine Glucose (UA) (Negative) Urine Ketones (Negative) Urine Blood (Negative) Urine Nitrite (Negative) Urine Bilirubin (Negative) Urine Urobilinogen (0.2-1.0) Ur Leukocyte Esterase (Negative) Urine RBC (0-2) Urine WBC (0-5) Ur Squamous Epith Cells (None-Few) Urine Bacteria (None) SARS-CoV-2 (PCR) Negative SARS-CoV-2 (Negative) Influenza Type A (PCR) Negative PCR FLU A (Negative) Influenza Type B (PCR) Negative PCR FLU B (Negative) RSV (PCR) Negative PCR RSV (Negative) POC Troponin I 0.01 (0.01-0.04) ng/ml 04/06/24 Range/Units 10:09 WBC (4.50-11.00) K/uL RBC (4.00-5.20) m/uL Hgb (12.0-16.0) gm/dL Hct (33.0-51.0) % MCV (80-100) fL MCH (26-34) pg MCHC (32-36) gm/dL RDW Coeff of Vidal (11.5-15.5) % Plt Count (140-440) K/uL Neut % (Auto) (42.0-72.0) % Lymph % (Auto) (20-44) % [place] % (Auto) (0.0-11.0) % Eos % (Auto) (0.0-7.0) % Baso % (Auto) (0.0-3.0) % Neut # (Auto) (1.7-7.0) K/uL Lymph # (Auto) (0.90-2.90) K/uL [place] # (Auto) (0.00-0.90) K/UL Eos # (Auto) (0.00-0.50) K/uL Baso # (Auto) (0.00-0.30) K/uL Abs Immat Gran (auto) (0.00-0.30) K/uL Imm/Tot Granulo (auto) % Sodium (135-149) mmol/L Potassium (3.6-5.1) mmol/L Chloride (96-114) mmol/L Carbon Dioxide (20-32) mmol/L Anion Gap (7-15) mEq/L BUN (7-30) mg/dL Creatinine (0.5-1.5) mg/dL Estimated Creat Clear Estimated GFR ml/min Glucose (60-115) mg/dL Calcium (8.4-10.6) mg/dL Troponin I (0.01-0.04) ng/mL NT-Pro-B Natriuret Pep pg/mL Urine Color Yellow (Yellow) Urine Appearance Clear (Clear) Urine pH 6.0 (5.0-8.5) Ur Specific [place] 1.015 (1.000-1.030) Urine Protein Trace A (Negative) Urine Glucose (UA) Negative (Negative) Urine Ketones Negative (Negative) Urine Blood Trace-intact A (Negative) Urine Nitrite Negative (Negative) Urine Bilirubin Negative (Negative) Urine Urobilinogen 0.2 (0.2-1.0) Ur Leukocyte Esterase 1+ A (Negative) Urine RBC 2-5 A (0-2) Urine WBC 25-50 A (0-5) Ur Squamous Epith Cells Moderate A (None-Few) Urine Bacteria Moderate A (None) SARS-CoV-2 (PCR) (Negative) Influenza Type A (PCR) (Negative) Influenza Type B (PCR) (Negative) RSV (PCR) (Negative) POC Troponin I (0.01-0.04) ng/ml ECG Data Attestation: I personally reviewed and interpreted this ECG as follows: (Sinus bradycardia at rate of 50.) Discharge Plan Discharge Clinical Impression: Orthopnea, Fatigue due to excessive exertion, Difficulty breathing Patient Disposition: Home w/ Parent or Adult Condition: Stable Additional Instructions: We are testing you with a dose of furosemide. You might benefit from continuing furosemide. I am anticipating a receiving an echocardiogram at 3:00 p.m.. If that does not work out then 1:00 p.m. tomorrow. Please begin keeping daily weights. I would like you schedule follow-up a since possible with your primary care provider. It sounds as though you would benefit from a study for sleep apnea. You might also benefit from a pulmonary function test. Would review again treatment for your blood pressure. A urine culture will be pending here. If this is positive we will call you to consider treatment. Return otherwise for persistent increasing shortness of breath, chest pain, lightheadedness. Please check in at the [facility] front entrance at 2:45pm for your Echocardiogram. Please keep your follow up appointment tomorrow with Dr. Guerrero. Prescriptions: No Action aspirin 81 mg capsule 81 mg PO QDAY omega 5-saw-lhu-fish oil [Fish Oil] 300-1,000 mg capsule 1 cap PO BID multivitamin Tablet 1 tab PO QAM calcium-vitamin D3-vitamin K [Viactiv] 650 mg-12.5 mcg-40 mcg tablet,chewable 2 tab PO DAILY fluoxetine 40 mg capsule 40 mg PO QDAY Qty: 90 3RF hydrochlorothiazide 25 mg tablet 25 mg PO BID Qty: 180 3RF levothyroxine 125 mcg tablet 125 mcg PO QDAY Qty: 90 3RF omeprazole 20 mg capsule,delayed release(DR/EC) 20 mg PO QDAY Qty: 90 3RF simvastatin 20 mg tablet 20 mg PO QHS Qty: 90 3RF metoprolol tartrate 25 mg tablet 25 mg PO BID Qty: 180 3RF Follow Up/Referrals: Jack Guerrero MD [Primary Care Provider] - Stand Alone Forms: [employer] Info Instructions
--- NOTE | 2024-04-06 08:38 | CRLHL7_ITS ---
For Patients: As a result of the Century Cures Act, medical imaging exams and procedure reports are released immediately into your electronic medical record. You may view this report before your referring provider. If you have questions, please contact your health care provider. INDICATION: Dyspnea TECHNIQUE: Chest 2 views. COMPARISON: None. FINDINGS: Cardiovascular and mediastinum: Heart size is normal. Unremarkable mediastinum. Lungs and pleural spaces: Mild interstitial prominence. No pneumothorax or pleural effusion. Bones and soft tissues: Cholecystectomy clips.. IMPRESSION: Mild interstitial prominence can be seen with viral infection or pulmonary edema. Dictated by Madie Tripathi MD @ 04/06/2024 9:10:52 AM (Electronically Signed)
--- OUTSIDE RECORDS SUMMARY | 2024-04-06 09:20 | XMS_ITS | Clinical Summary ---
Author Organization [facility] Address [address] [place] [address] Care Team Providers Care Produce Inspector Name Role Phone Rafael Guerrero MD Primary Care Provider [phone] Allergies Active Allergy Reactions Criticality Noted Date Comments Oxycodone Other (See Comments) 06/14/2020 hallucinations Medications calcium carbonate (OS-CARLOTTA 500 MG [place]. 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 [id number] 05/24/2028 [id number] 2 / / [id number] Imp Tibial Zim Psn Military Pay Technician Stm 5deg Sz El [id number] 1 Implanted:Qty : 1 on 07/10/2020 by Cesar Kenney MD at [facility] Total Joint Componen t/Insert Left: Knee [employer] [id number] 12/16/2029 86-0375-793-0 1 / / [id number] Imp Comp Fem Zim Psn Ps Cmt Narrow Sz 7 Lt [id number] 1 Implanted:Qty : 1 on 07/10/2020 by Cesar Kenney MD at [facility] Total Joint Componen t/Insert Left: Knee [employer] [id number] 09/19/2029 49-0821-589-0 1 / / [id number] Bone Cement Simplex Full Dose 6191-1-001 Implanted:Qty : 1 on 03/27/2015 by Cesar Kenney MD at [facility] Right: Knee [employer] 09/30/2017 6191-1-001 / / [id number] Imp Comp Femoral E Rt [id number] 2 Implanted:Qty : 1 on 03/27/2015 by Cesar Kenney MD at [facility] Right: Knee [employer] 11/30/2024 [id number] 2 / / [id number] Imp Comp Tibial Stemmed Zim Nexgen Size 3 Implanted:Qty : 1 on 03/27/2015 by Cesar Kenney MD at [facility] Right: Knee [employer] 11/30/2024 [id number] 1 [id number] Imp Art Surface Zim Nexgen Lps Ef 3-4 10mm 29-3591-348-1 0 Implanted:Qty : 1 on 03/27/2015 by Cesar Kenney MD at [facility] Right: Knee [employer] 09/24/202223-8188-776-1 0 / [id number] Imp Comp Patella Zim Nexgen 8.5x32mm Implanted:Qty : 1 on 03/27/2015 by Cesar Kenney MD at [facility] Right: Knee [employer] 12/31/202209-4973-812-3 2 / [id number] Persona Articular Surface Fixed Bearing Posterior Stabilized (Ps) Left 10mm Height Implanted:Qty : 1 on 07/10/2020 by Cesar Kenney MD at [facility] Left: Knee [employer] [id number] 06/30/2021 [id number] / / [id number] Insurance MEDICARE [facility] Advance Directives For more information, please contact: [phone] * Full Code (Latest Code Status on [...] 11:51 AM 03/29/2015 5:49 PM Care Teams Produce Inspector Relationship Specialty Start Date End Date Rafael Guerrero MD PCP - General Family Medicine 06/05/20
--- OUTSIDE RECORDS SUMMARY | 2024-04-06 09:20 | XMS_ITS | Referral Summary ---
Author Organization [facility] Address [address] [place] [address] Care Team Providers Care Records Management Technician Name Role Phone Rafael Guerrero MD Primary Care Provider [phone] Allergies Active Allergy Reactions Criticality Noted Date Comments Oxycodone Other (See Comments) 06/14/2020 hallucinations Medications calcium carbonate (OS-CARLOTTA 500 MG [place]. CA) 500 MG tablet Take 500 mg by mouth 2 times daily Active [place]-3 Fatty Acids (OMEGA-3 FISH OIL PO) Take [...] on file Legal Sex Female 9:[address] Gender Identity Not on file Sexual Orientation [...] on file Medical Devices Implanted Type Area Track Watchman Device Identifier Shelf Expiration Date Model / Serial / Lot Bone Cement Simplex W/Tobramycin 6197-9-001 Implanted:Qty : 1 on 07/10/2020 by Cesar Kenney MD at [facility] Cement, Bone Left: Knee [employer] 06/30/2021 6197-9-001 / / [id number] Imp Patella Zim Knee All [place] 32mm [id number] 2 Implanted:Qty : 1 on 07/10/2020 by Cesar Kenney MD at [facility] Total Joint Componen t/Insert Left: Knee [employer] [id number] 05/24/2028 64-9566-127-3 2 / / [id number] Imp Tibial Zim Psn Web Press Operator Assistant Stm 5deg Sz El 98-8589-067-0 1 Implanted:Qty : 1 on 07/10/2020 by Cesar Kenney MD at [facility] Total Joint Componen t/Insert Left: Knee [employer] [id number] 12/16/2029 14-1123-078-0 1 / / [id number] Imp Comp Fem Zim Psn Ps Cmt Narrow Sz 7 Lt 01-4733-457-0 1 Implanted:Qty : 1 on 07/10/2020 by Cesar Kenney MD at [facility] Total Joint Componen t/Insert Left: Knee [employer] [id number] 09/19/2029 80-9900-930-0 1 / / [id number] Bone Cement Simplex Full Dose 6191-1-001 Implanted:Qty : 1 on 03/27/2015 by Cesar Kenney MD at [facility] Right: Knee [employer] 09/30/2017 6191-1-001 / / [id number] Imp Comp Femoral E Rt 09-8663-891-5 2 Implanted:Qty : 1 on 03/27/2015 by Cesar Kenney MD at [facility] Right: Knee [employer] 11/30/2024 01-7537-153-5 2 / / [id number] Imp Comp Tibial Stemmed Zim Nexgen Size 3 Implanted:Qty : 1 on 03/27/2015 by Cesar Kenney MD at [facility] Right: Knee [employer] 11/30/2024 34-3225-606-0 1 [id number] Imp Art Surface Zim Nexgen Lps Ef 3-4 10mm 84-4279-556-1 0 Implanted:Qty : 1 on 03/27/2015 by Cesar Kenney MD at [facility] Right: Knee [employer] 09/24/202239-7561-453-1 0 / [id number] Imp Comp Patella Zim Nexgen 8.5x32mm Implanted:Qty : 1 on 03/27/2015 by Cesar Kenney MD at [facility] Right: Knee [employer] 12/31/202257-4827-839-3 2 / [id number] Persona Articular Surface Fixed Bearing Posterior Stabilized (Ps) Left 10mm Height Implanted:Qty : 1 on 07/10/2020 by Cesar Kenney MD at [facility] Left: Knee [employer] [id number] 06/30/2021 [id number] / / [id number] Insurance MEDICARE [facility] Advance Directives For more information, please contact: [phone] * Full Code (Latest Code Status on [...] 11:51 AM 03/29/2015 5:49 PM Care Teams Records Management Technician Relationship Specialty Start Date End Date Rafael Guerrero MD PCP - General Family Medicine 06/05/20
--- OUTSIDE RECORDS SUMMARY | 2024-04-06 09:20 | XMS_ITS | Encounter Summary ---
Author Organization [facility] Address [address] [place] [address] Care Team Providers Care Pipe Stress Engineer Name Role Phone Doctor, None MD Primary Care Provider Unavailabl e Rafael Guerrero MD Primary Care Provider [phone] Encounter Details Date Type Department Care Team (Late st Contact Info) Description 03/01/2015 [facility] [address] [place] [id number] Cesar Kenney MD [facility] [address] [place] [address] Pre-operative laboratory examination (Primary Dx) Social History Tobacco Use Types Packs/Day Years Used Date Smoking Tobacco: Never Assessed Comments No Sex and Gender Information Value Date Recorded Sex Assigned at Not on file 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 aureus PCR Negative MRSA [...] nasal colonization. FDA approved assay performed using [employer] GeneXpert(R) real-time PCR. NEG [facility] 03/16/2015 12:1 5 PM DAIRY NUTRITION CONSULTANT 03/16/2015 3:04 PM DAIRY NUTRITION CONSULTANT us Cesar Kenney MD LAB - MICRO GENERAL [facility] Final Result [facility] [address] [place] [address], [facility] [address] [place] [address], [facility] [phone] documented in this encounter Visit Diagnoses Diagnosis Pre-operative laboratory examination- Primary Pre-procedural laboratory examination documented in this encounter Care Teams Pipe Stress Engineer Relationship Specialty Start Date End Date Doctor, None, PCP - General 02/23/15 10/31/16 Rafael Guerrero MD PCP - General Family Medicine 06/05/20 documented as of this encounter
--- OUTSIDE RECORDS SUMMARY | 2024-04-06 09:20 | XMS_ITS | Encounter Summary ---
Author Organization [place] Address [address] [place] [address] Care Team Providers Care Upholstery Repairer Name Role Phone Rafael Guerrero MD Primary Care Provider [phone] Encounter Details Date Type Department Care Team (Late st Contact Info) Description 06/12/2020 Orders Only [facility] [address] [place] [address] Cesar Kenney MD [facility] [address] [place] [address] Pre-operative laboratory examination (Primary Dx) Social History Tobacco Use Types Packs/Day Years Used Date Smoking Tobacco: Never Alcohol Use Standard Drinks/Week Comments Yes 0 (1 standard drink = 0.6 oz pur e alcohol) Occas Comments No Sex and Gender Information Value Date Recorded Sex Assigned at Not on file 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 COVID-19 Virus [facility] to [facility] [place] - Result Test received-See reflex to IDDL test SARS CoV2 (COVID-19) Virus RT-PCR 07/06/2020 12:48 PM CDT [facility], [facility] Specimen from nasopharyngeal structure (specimen) 07/06/2020 9:11 AM CDT 07/06/2020 9:16 AM CDT us Cesar Kenney MD LAB - MICRO GENERAL PALMER OBRIEN Final Result [facility], [facility] [address] [place] [address], [facility] [address] [place] [address] documented in this encounter Visit Diagnoses Diagnosis Pre-operative laboratory examination- Primary Pre-procedural laboratory examination documented in this encounter Care Teams Upholstery Repairer Relationship Specialty Start Date End Date Rafael Guerrero MD PCP - General Family Medicine 06/05/20 documented as of this encounter
--- OUTSIDE RECORDS SUMMARY | 2024-04-06 09:21 | XMS_ITS | Clinical Summary ---
Author Organization [facility] Address [place], [place] [address] Care Team Providers Care Therapist Radiation Name Role Phone Jack Guerrero MD Primary Care Provider [phone] Allergies No known active allergies Medications omeprazole [...] 08/24/2019 8:07 AM CDT Plan of Treatment Upcoming Encounters Date Type Department Care Team (Late st Contact Info) Description 04/06/2024 4:00 PM SALES AND SERVICE ADVISOR Ancillary Procedure [facility] [address] [place] [address] Health Maintenance Due Date Last Done Comments [...] series) 2020 COVID-19 vaccine series ( - 2023- season) 4 Influenza for age 65+ 11/02/2023 Medical Devices Implanted Type Area Attending Radiologist Device Identifier Shelf Expiration Date Model / Serial / Lot Iol Stephenson +21.5 Irena Zcb00 - [id number] Implanted:Qty : 1 on 08/24/2019 by Mark Mclean MD at [facility] Opthalmology Implants Left: Eye [employer] 03/06/2023 ZCB00 21.5# / [id number] 1 / Iol Stephenson +22 Tecnis Zcb00 - [id number] Implanted:Qty : 1 on 08/03/2019 by Mark Mclean MD at [facility] Right: Eye [employer] 03/22/2023 ZCB00 22.0# / [id number] 1 / [place] [id number] MEDICARE PART A HB ONLY [place] BLUE HB ONLY MEDICARE PART B HB ONLY [facility] [employer] [employer] Advance Directives * Full Code (Latest Code Status on File) Date Activated Date Inactivated Comments 08/24/2019 8:04 AM 08/24/2019 12:36 PM Question Answer Comments Code Status Discussion: Not Discussed * Full Code Date Activated Date Inactivated Comments 08/03/2019 7:55 AM 08/03/2019 2:26 PM Question Answer Comments Code Status Discussion: Not Discussed Care Teams Therapist Radiation Relationship Specialty Start Date End Date Jack Guerrero MD PCP - General Family Practice 07/30/19
[2024-04-06 09:28] LABS: Basophils Absolute Auto 0.04 K/uL (0.00-0.30); Basophils Percent Auto 0.5 % (0.0-3.0); Eosinophils Absolute Auto 0.41 K/uL (0.00-0.50); Eosinophils Percent Auto 5.3 % (0.0-7.0); Hematocrit 40.4 % (33.0-51.0); Hemoglobin* 13.3 gm/dL (12.0-16.0); Immature Granulocytes Abs Auto 0.01 K/uL (0.00-0.30); Immature Granulocytes Pct Auto 0.1 %; Lymphocytes Absolute Auto 1.87 K/uL (0.90-2.90); Lymphocytes Percent Auto 24.2 % (20-44); Mean Corpuscular HGB Conc 33 gm/dL (32-36); Mean Corpuscular Hemoglobin 31 pg (26-34); Mean Corpuscular Volume 94 fL (80-100); Monocytes Percent Auto 8.7 % (0.0-11.0); Neutrophils Absolute Auto 4.74 K/uL (1.7-7.0); Neutrophils Percent Auto 61.2 % (42.0-72.0); Platelet Count* 274 K/uL (140-440); RDW Coefficient of Variation % 14.3 % (11.5-15.5); Red Blood Count 4.32 m/uL (4.00-5.20); White Blood Count* 7.74 K/uL (4.50-11.00)
[2024-04-06 09:30] LABS: Troponin, Point-of-Care* 0.01 ng/ml (0.01-0.04)
[2024-04-06 09:47] LABS: Slide Review Reflex No
[2024-04-06 09:47] LABS: PCR FLU A Negative PCR FLU A (Negative); PCR FLU B Negative PCR FLU B (Negative); PCR RSV Negative PCR RSV (Negative); SARS PCR* Negative SARS-CoV-2 (Negative)
[2024-04-06 09:49] LABS: Chloride* 101 mmol/L (96-114); Potassium* 3.6 mmol/L (3.6-5.1); Sodium* 138 mmol/L (135-149)
[2024-04-06 09:52] LABS: Anion Gap 9 mEq/L (7-15); Carbon Dioxide* 28 mmol/L (20-32); Creatinine* 0.8 mg/dL (0.5-1.5); Est. Creatinine Clearance* 40.04; Estimated Glomerular Filt Rate 75 ml/min
[2024-04-06 09:53] LABS: Blood Urea Nitrogen* 13 mg/dL (7-30); Calcium* 9.2 mg/dL (8.4-10.6); Glucose* 101 mg/dL (60-115)
[2024-04-06 10:04] LABS: NT Pro B Type NatriureticPept* 797 pg/mL
[2024-04-06 10:19] LABS: Troponin I* < 0.01 ng/mL (0.01-0.04)
[2024-04-06 10:22] LABS: Appearance Urine Clear (Clear); Bilirubin Urine Negative (Negative); Blood Urine Trace-intact (Negative); Color Urine Yellow (Yellow); Glucose Urine Negative (Negative); Ketones Urine Negative (Negative); Leukocyte Esterase Urine 1+ (Negative); Nitrite Urine Negative (Negative); Protein Urine Trace (Negative); Specific Gravity Urine 1.015 (1.000-1.030); Urobilinogen Urine 0.2 (0.2-1.0)
[2024-04-06 10:37] LABS: Bacteria Urine Moderate; Squamous Epithelial Cell Urine Moderate (None-Few); WBC Urine 25-50 (0-5)
--- NOTE | 2024-04-07 08:36 | ED.NURSE ---
Preliminary results for urine culture was reviewed by Dr. Fuchs. Recommended we treat patient with Macrobid 100mg BID X7 days. This was called into patients preferred pharmacy at [facility]. Patient was contacted with these results and recommendations. She has a follow up with Dr. Guerrero today at 11:15 but will pharmacy picking technician her prescription when it is ready.
== END 2024-04-06 12:16 | disposition home or self-care (01) ==
PROVIDERS: Emergency Provider Family Medicine; PCP Family Medicine
DX: R06.01 Orthopnea (principal); R53.83 Other fatigue; R06.02 Shortness of breath; R06.09 Other forms of dyspnea; I34.0 Nonrheumatic mitral (valve) insufficiency
CPT/HCPCS: 36415; 71046; 80048; 81001; 83880; 84484; 85025; 87086; 87631; 93005; 93306; 96374; 96375; 99284; 99285; J1940

== ENCOUNTER 2024-04-06 13:45 | Outpatient (CLI) | payer MEDICARE, BC, SELFPAY | END 2024-04-06 13:46 | disposition home or self-care (01) | LOC: RAD 13:46 | PROVIDERS: PCP Family Medicine; Visit Provider Family Medicine | DX: R06.09 Other forms of dyspnea (principal); I34.0 Nonrheumatic mitral (valve) insufficiency | CPT/HCPCS: 93306 ==

== ENCOUNTER 2024-04-28 10:18 | Outpatient (CLI) | payer MEDICARE, BC, SELFPAY | END 2024-04-28 10:19 | disposition home or self-care (01) | LOC: LKVREF 10:19 | PROVIDERS: PCP Family Medicine; Visit Provider Family Medicine | DX: E78.2 Mixed hyperlipidemia (principal) | CPT/HCPCS: 80061 ==

== ENCOUNTER 2024-05-04 10:15 | Outpatient (RCR) | payer MEDICARE, BC, SELFPAY ==
[2024-04-27] MEDS: REGADENOSON 0.4 MG/5 ML SYRINGE IVP (09:33)
[2024-04-27] MEDS: SODIUM CHLORIDE 0.9 % (FLUSH) 10 ML SYRINGE IVF (09:33)
[2024-04-27 10:08] VITALS: BP 122/78; PULSE 87; RESP 16
--- NOTE | 2024-04-27 10:37 | W.PM.STED ---
Stress Test Note Date Date Seen: 04/27/24 Date of test: 04/27/24 Providers Primary care provider: Jack Guerrero Stress test physician: Lisa Hickman Stress Test Note Stress test ordered: Lexiscan Indication for test: Episode of severe dyspnea Stress test medicine: Lexiscan Results discussion: Resting EKG: Sinus rhythm, 77 beats per minute. Resting blood pressure: 162/100 Stress test: Patient has consented on nonwalking Lexiscan. She felt mild transient lightheadedness with infusion of the regadenoson. She had no shortness of breath, no chest pain. There was no arrhythmias. Did see occasional PVC but otherwise no concerning change. Patient did flipped T-waves and had ST depression in 1 and aVL but not meeting diagnostic criteria for ischemia. Blood pressure did drop post stress test to 122/78 but she was asymptomatic. Impression: Subjectively negative, objectively equivocal EKG portion of this Lexiscan: The lateral limb leads had nondiagnostic changes but certainly were present. Will await the nuclear images for full formal diagnostic report. Patient is asymptomatic at this time and stable to discharge after her images are obtained. If there are no areas of ischemia on nuclear imaging, EKG very likely represents false-positive. Follow up suggested: Will await nuclear imaging report to couple this for a full formal diagnostic. Patient will await results from Dr. Guerrero.
== END 2024-05-11 23:59 | disposition home or self-care (01) ==
LOC: STRESS 10:15
PROVIDERS: PCP Family Medicine; Visit Provider Family Medicine
DX: R06.09 Other forms of dyspnea (principal)
CPT/HCPCS: 78452; 93016; 93017; A9500; J2785

== ENCOUNTER 2024-06-16 13:14 | Outpatient (CLI) | payer MEDICARE, BC, SELFPAY ==
--- NOTE | 2024-06-23 08:16 | W.PM.SLEEP ---
Sleep Study Details Details Interpreting Provider: Jennifer Date of Sleep Study: 06/16/24 Sleep Study Details: STUDY TYPE:? Home unattended ? BMI:? 41.5 ORDERING PROVIDER:June Rodriguez INDICATION:? Concern for sleep apnea ? SLEEP SUMMARY:? 440 minutes monitored RESPIRATORY SUMMARY:? AHI 7.1 per CMS guideline, 15.3 per rule 1A Low oxygen 82 17.7% of study oxygen less than 90% Snoring 96.5% PERIODIC LIMB MOVEMENTS OF SLEEP: Not recorded CARDIAC:? Range 54-90, mean 60.9 beats per minute IMPRESSION:? Mild obstructive sleep apnea. Significant hypo oxygenation during 17.7% of the study. Overweight RECOMMENDATION: Treatment options if symptomatic include CPAP or dental appliance. Weight loss is recommended.
== END 2024-06-16 13:15 | disposition home or self-care (01) ==
LOC: SLEEP 13:18
PROVIDERS: PCP Family Medicine; Visit Provider Otolaryngology
DX: G47.33 Obstructive sleep apnea (adult) (pediatric) (principal)
CPT/HCPCS: 95806

== ENCOUNTER 2024-07-09 09:50 | Outpatient (CLI) | payer MEDICARE, BC, SELFPAY | END 2024-07-09 09:51 | disposition home or self-care (01) | LOC: NFLDREF 07-10 08:00 | PROVIDERS: PCP Family Medicine; Referring Provider Family Medicine; Visit Provider Family Medicine | DX: E89.0 Postprocedural hypothyroidism (principal) | CPT/HCPCS: 84439; 84443 ==

== ENCOUNTER 2024-11-18 12:14 | Outpatient (CLI) | payer MEDICARE, BC, SELFPAY | END 2024-11-18 12:15 | disposition home or self-care (01) | LOC: NFLDREF 11-24 11:22 | PROVIDERS: PCP Family Medicine; Referring Provider Family Medicine; Visit Provider Physician Assistant | DX: R39.15 Urgency of urination (principal) | CPT/HCPCS: 87086 ==

== ENCOUNTER 2024-11-28 15:30 | Emergency (ER) | payer MEDICARE, BC, SELFPAY ==
--- OUTSIDE RECORDS SUMMARY | 2024-11-28 15:32 | XMS_ITS | Clinical Summary ---
Author Organization [place] Address [address] [place] [address] Care Team Providers Care Commercial Baker Helper Name Role Phone Rafael Guerrero MD Primary Care Provider [phone] Allergies Active Allergy Reactions Criticality Noted Date Comments Oxycodone Other (See Comments) 06/14/2020 hallucinations Medications calcium carbonate (OS-CARLOTTA 500 MG [place]. [place]) 500 MG tablet Take 500 mg by mouth 2 times daily Active [employer]-3 Fatty Acids (OMEGA-3 FISH OIL PO) Take [...] on file Legal Sex Female 9:35 AM TAX ADVISOR Gender Identity Not on file Sexual Orientation [...] on file Medical Devices Implanted Type Area Pad Tufter Device Identifier Shelf Expiration Date Model / Serial / Lot Bone Cement Simplex W/Tobramycin 6197-9-001 Implanted:Qty : 1 on 07/10/2020 by Cesar Kenney MD at [facility] Cement, Bone Left: Knee [employer] 06/30/2021 6197-9-001 / / [id number] Imp Patella Zim Knee All [place] 32mm [id number] 2 Implanted:Qty : 1 on 07/10/2020 by Cesar Kenney MD at [facility] Total Joint Componen t/Insert Left: Knee [employer] [id number] 05/24/2028 [id number] 2 / / [id number] Imp Tibial Zim Psn Steam Shovelman Stm 5deg Sz El 64-4068-480-0 1 Implanted:Qty : 1 on 07/10/2020 by Cesar Kenney MD at [facility] Total Joint Componen t/Insert Left: Knee [employer] [id number] 12/16/2029 [id number] 1 / / [id number] Imp Comp Fem Zim Psn Ps Cmt Narrow Sz 7 Lt 87-6462-152-0 1 Implanted:Qty : 1 on 07/10/2020 by Cesar Kenney MD at [facility] Total Joint Componen t/Insert Left: Knee [employer] [id number] 09/19/2029 [id number] 1 / / [id number] Bone Cement Simplex Full Dose 6191-1-001 Implanted:Qty : 1 on 03/27/2015 by Cesar Kenney MD at [facility] Right: Knee [employer] 09/30/2017 6191-1-001 / / [id number] Imp Comp Femoral E Rt 09-5668-585-5 2 Implanted:Qty : 1 on 03/27/2015 by Cesar Kenney MD at [facility] Right: Knee [employer] 11/30/2024 [id number] 2 / / [id number] Imp Comp Tibial Stemmed Zim Nexgen Size 3 Implanted:Qty : 1 on 03/27/2015 by Cesar Kenney MD at [facility] Right: Knee [employer] 11/30/2024 [id number] 1 [id number] Imp Art Surface Zim Nexgen Lps Ef 3-4 10mm [id number] 0 Implanted:Qty : 1 on 03/27/2015 by Cesar Kenney MD at [facility] Right: Knee [employer] 09/24/202252-6245-076-1 0 / [id number] Imp Comp Patella Zim Nexgen 8.5x32mm Implanted:Qty : 1 on 03/27/2015 by Cesar Kenney MD at [facility] Right: Knee [employer] 12/31/202248-9084-267-3 2 / [id number] Persona Articular Surface Fixed Bearing Posterior Stabilized (Ps) Left 10mm Height Implanted:Qty : 1 on 07/10/2020 by Cesar Kenney MD at [facility] Left: Knee [employer] [id number] 06/30/2021 [id number] / / [id number] Insurance MEDICARE [facility] Advance Directives For more information, please contact: [phone] * Full Code (Latest Code Status on [...] 11:51 AM 03/29/2015 5:49 PM Care Teams Commercial Baker Helper Relationship Specialty Start Date End Date Rafael Guerrero MD PCP - General Family Medicine 06/05/20
--- OUTSIDE RECORDS SUMMARY | 2024-11-28 15:32 | XMS_ITS | Encounter Summary ---
Author Organization [place] Address [address] [place] [address] Care Team Providers Care Manager Product Name Role Phone Doctor, None MD Primary Care Provider Unavailabl e Rafael Guerrero MD Primary Care Provider [phone] Encounter Details Date Type Department Care Team (Late st Contact Info) Description 03/01/2015 [facility] [address] [place] [phone] Cesar Kenney MD [facility] [address] [place] [address] Pre-operative laboratory examination (Primary Dx) Social History Tobacco Use Types Packs/Day Years Used Date Smoking Tobacco: Never Assessed Comments No Sex and Gender Information Value Date Recorded Sex Assigned at Not on file 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 aureus PCR [...] nasal colonization. FDA approved assay performed using [employer] GeneXpert(R) real-time PCR. NEG [facility] 03/16/2015 12:1 5 PM AUTOMATIC DRILLING MACHINE OPERATOR 03/16/2015 3:04 PM AUTOMATIC DRILLING MACHINE OPERATOR us Cesar Kenney MD LAB - MICRO GENERAL PALMER OBRIEN Final Result [facility] [address] [place] [address], [facility] [address] [place] [address], [facility] [phone] documented in this encounter Visit Diagnoses Diagnosis Pre-operative laboratory examination- Primary Pre-procedural laboratory examination documented in this encounter Care Teams Manager Product Relationship Specialty Start Date End Date Doctor, None, PCP - General 02/23/15 10/31/16 Rafael Guerrero MD PCP - General Family Medicine 06/05/20 documented as of this encounter
--- OUTSIDE RECORDS SUMMARY | 2024-11-28 15:32 | XMS_ITS | Encounter Summary ---
Author Organization [place] Address [address] [place] [address] Care Team Providers Care Correspondence Analyst Name Role Phone Rafael Guerrero MD Primary Care Provider [phone] Encounter Details Date Type Department Care Team (Late st Contact Info) Description 06/12/[address] 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 Gender Identity Not on file Sexual Orientation [...] - Source Nasopharyngeal 07/06/2020 9:16 AM CDT [facility] COVID-19 Virus PCR to [facility] [place] - Result Test received-See reflex to IDDL test SARS CoV2 (COVID-19) Virus RT-PCR 07/06/2020 12:48 PM CDT [facility], [facility] Specimen from nasopharyngeal structure (specimen) 07/06/2020 9:11 AM CDT 07/06/2020 9:16 AM CDT us Cesar Kenney MD LAB - MICRO GENERAL PALMER OBRIEN Final Result [facility], [facility] [address] [place] [address], [facility] [address] [place] [address] documented in this encounter Visit Diagnoses Diagnosis Pre-operative laboratory examination- Primary Pre-procedural laboratory examination documented in this encounter Care Teams Correspondence Analyst Relationship Specialty Start Date End Date Rafael Guerrero MD PCP - General Family Medicine 06/05/20 documented as of this encounter
--- OUTSIDE RECORDS SUMMARY | 2024-11-28 15:33 | XMS_ITS | Clinical Summary ---
Author Organization [facility] Address [address] [place] [address] Care Team Providers Care Timber Management Specialist Name Role Phone Jack Guerrero MD Primary Care Provider [phone] Allergies No known active allergies Medications omeprazole [...] Health Maintenance Due Date Last Done Comments Tetanus booster 1956 Depression screening for age 12+ 1957 BMI (ht and wt on same day) for age 18+ 06/12/1963 Hepatitis C screening for ag e 18-79 06/12/1963 Pneumococcal series for age 50+ (1 of 1 - PCV) 06/12/1995 Zoster (shingles) series for age 50+ (1 of 2) 06/12/1995 DEXA/DXA scan for age 65+ 2010 RSV vaccine for adults or (1 - 1-dose 75+ series) 2020 COVID-19 vaccine series ( - season) 2024 Influenza Vaccine (#1) 2024 Hepatitis B series for 19+ Aged Out N o longer eligible based on patient's age to complete this topic Medical Devices Implanted Type Area Religious Activities Director Device Identifier Shelf Expiration Date Model / Serial / Lot Iol [place] +21.5 Irena Zcb00 - [id number] Implanted:Qty : 1 on 08/24/2019 by Mark Mclean MD at [facility] Opthalmology Implants Left: Eye [employer] 03/06/2023 ZCB00 21.5# / [id number] 1 / Iol [place] +22 Tecnis Zcb00 - [id number] Implanted:Qty : 1 on 08/03/2019 by Mark Mclean MD at [facility] Right: Eye [employer] 03/22/2023 ZCB00 22.0# / [id number] 1 / Insurance MEDICARE PART A HB ONLY [place] BLUE HB ONLY MEDICARE PART B HB ONLY [place] BLUE MR PB ONLY [facility] FAMILY INSURANCE Advance Directives * Full Code (Latest Code Status on File) Date Activated Date Inactivated Comments 08/24/2019 8:04 AM 08/24/2019 12:36 PM Question Answer Comments Code Status Discussion: Not Discussed * Full Code Date Activated Date Inactivated Comments 08/03/2019 7:55 AM 08/03/2019 2:26 PM Question Answer Comments Code Status Discussion: Not Discussed Care Teams Timber Management Specialist Relationship Specialty Start Date End Date Jack Guerrero MD [address] [place] [address] PCP - General Family Practice 04/06/24
[2024-11-28 15:42] VITALS: BP 130/75; PULSE 79; RESP 20; TEMP 37; O2SAT 94
--- NOTE | 2024-11-28 15:58 | ED.GENADULT ---
HPI - General Adult General Time Seen by Provider: 15:58 Date Seen: 11/28/24 Chief complaint: Cough Stated complaint: Cough, Fever Time Seen by Provider: 11/28/24 15:56 Source: patient Mode of arrival: ambulatory Limitations: no limitations History of Present Illness HPI narrative: 79-year-old female who presents today with cough. Patient notes cough, nasal congestion, sore throat, and some shortness of breath which has been going on for about 2 weeks. She was seen at urgent care and prescribed azithromycin Related Data Home Medications ?Medication ?Instructions ?Recorded ?Confirmed aspirin 81 mg capsule 81 mg PO QDAY 12/05/21 11/28/24 multivitamin 1 tab PO QAM 12/05/21 11/28/24 omega 4-cnj-hdh-fish oil 300 1 cap PO BID 12/05/21 11/28/24 mg-1,000 mg capsule (Fish Oil) calcium 650 mg-vitamin D3 12.5 2 tab PO DAILY 06/03/23 11/28/24 mcg-vitamin K 40 mcg chewable tablet (Viactiv) losartan 25 mg tablet 25 mg PO QDAY 08/05/24 11/28/24 oxygen-air delivery systems 11/28/24 11/28/24 Previous Rx's ?Medication ?Instructions ?Recorded potassium chloride 10 mEq 10 meq PO QDAY #90 caps 04/28/24 capsule,extended release omeprazole 20 mg capsule,delayed 20 mg PO QDAY #90 caps 05/05/24 release simvastatin 20 mg tablet 20 mg PO QHS #90 tabs 05/05/24 furosemide 20 mg tablet 20 mg PO QAM #90 tabs 05/24/24 levothyroxine 125 mcg tablet 125 mcg PO QDAY #90 tabs 07/06/24 fluoxetine 40 mg capsule 40 mg PO QDAY #90 caps 10/04/24 hydrochlorothiazide 25 mg tablet 25 mg PO BID #180 tabs 10/04/24 Allergies Allergy/AdvReac Type Severity Reaction Status Date / Time No Known Allergies Allergy Verified 11/28/24 15:45 PFSH PFSH Medical History Hypertension ?I10 - Essential (primary) hypertension (ICD-10) Hyperlipidemia ?E78.5 - Hyperlipidemia, unspecified (ICD-10) Hypothyroidism ?E03.9 - Hypothyroidism, unspecified (ICD-10) Depression ?F32.A - Depression, unspecified (ICD-10) Gastroesophageal reflux disease ?K21.9 - Gastro-esophageal reflux disease without esophagitis (ICD-10) Rotator cuff tendinitis ?M75.80 - Other shoulder lesions, unspecified shoulder (ICD-10) Pulmonary fibrosis ?J84.10 - Pulmonary fibrosis, unspecified (ICD-10) History of thyroid cancer ?Z85.850 - Personal history of malignant neoplasm of thyroid (ICD-10) Health care directive on file ?Z78.9 - Other specified health status (ICD-10) Surgical History Status post left knee replacement ?Z96.652 - Presence of left artificial knee joint (ICD-10) Status post 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) Status post right knee replacement ?Z96.651 - Presence of right artificial knee joint (ICD-10) Status post bunionectomy ?Z98.890 - Other specified postprocedural states (ICD-10) Status post appendectomy ?Z90.49 - Acquired absence of other specified parts of digestive tract (ICD-10) History of cholecystectomy ?Z90.49 - Acquired absence of other specified parts of digestive tract (ICD-10) Family History Other Colon cancer Social History Smoking Status: Never smoker How often do you have a drink containing alcohol: monthly or less How often do you have six or more drinks on one occasion: Weekly AUDIT-C Alcohol total score: 4 Non-prescribed substance use: denies use service: No Exam Narrative: Exam Narrative: General: Well-developed and well-nourished, no acute distress Head: Atraumatic and normocephalic Eyes: Pupils are equal reactive, extraocular motions intact, conjunctiva clear ENT: External nose and ears are normal, posterior pharynx without erythema or exudate Neck: No midline cervical tenderness, full spontaneous range of motion the neck, trachea midline, no adenopathy Heart: Regular rate and rhythm no murmurs or thrills Lungs: Diffuse expiratory wheezes with diffuse crackles bilaterally Abdomen: Soft, nontender, nondistended with active bowel sounds Musculoskeletal: No tenderness, deformity, or edema Neurologic: Awake, alert, and oriented x3, no gross focal neurologic deficits, cranial nerves intact as tested Psych: Mood and affect are appropriate Skin: No rashes Const: Vital Signs, click to edit/add: Vital Signs - 24 hr 11/28/24 15:42 Temperature 98.6 F Pulse Rate [Pulse Oximeter] 79 Respiratory Rate 20 Blood Pressure [Ri ght Upper Arm] 130/75 Pulse Oximetry 94 Oxygen Delivery Me thod Room Air Course Course ED Course: Reviewed prior urgent care visit November 18 would patient was seen with 2 days of cough, sore throat, headache and subjective fever. Had labs done at that time which showed negative COVID test negative strep test, negative influenza. Chest x-ray with findings of viral or atypical infection and was discharged with azithromycin. Patient presents today with continued cough, nasal congestion, sore throat, chest tightness which have been going on for couple of weeks. Subjective fevers. No chest pain, leg swelling, nausea vomiting. On exam here, finally stable, diffuse wheezes with some crackles. Symptoms are most consistent with viral infection. DuoNeb is ordered and chest x-ray will be repeated see if there is any organizing pneumonia. If negative, discharge with prednisone and albuterol. Reevaluation(s) Time of Reevaluation #1: 17:07 Reevaluation #1: Chest x-ray and pelvic interpreted by me with persistent interstitial infiltrates. Radiology interpretation reviewed, these could be related to pulmonary edema or infection. Given associated symptoms of runny nose and sore throat as well as pre-existing pulmonary fibrosis, this likely does represent infectious etiology which may be viral. Additionally, patient had a stress test in May 2024 which demonstrated normal ejection fraction and normal left ventricular size, echocardiogram in April 2024 demonstrated normal left ventricular and right ventricular function. Vital Signs Vital signs: Initial Vital Signs Temperature 98.6 F 11/28/24 15:42 Temperature Source Temporal Artery Scan 11/28/24 15:42 Pulse Rate 79 11/28/24 15:42 Respiratory Rate 20 11/28/24 15:42 Blood Pressure 130/75 11/28/24 15:42 Blood Pressure Mean 93 11/28/24 15:42 Blood Pressure Position Sitting 11/28/24 15:42 Pulse Oximetry 94 11/28/24 15:42 Oxygen Delivery Method Room Air 11/28/24 15:42 Vital Signs Temperature 98.6 F 11/28/24 15:42 Pulse Rate 79 11/28/24 15:42 Respiratory Rate 20 11/28/24 15:42 Blood Pressure 130/75 11/28/24 15:42 Pulse Oximetry 94 11/28/24 15:42 Oxygen Delivery Method Room Air 11/28/24 15:42 Temperature 98.6 F 11/28/24 15:42 Pulse Rate 79 11/28/24 15:42 Respiratory Rate 20 11/28/24 15:42 Blood Pressure 130/75 11/28/24 15:42 Pulse Oximetry 94 11/28/24 15:42 Oxygen Delivery Method Room Air 11/28/24 15:42 Discharge Plan Discharge Clinical Impression: Acute lower respiratory tract infection, Pulmonary fibrosis Hypertension Qualifiers: Hypertension type: primary hypertension Qualified Code(s): I10 - Essential (primary) hypertension Patient Disposition: Home, Self-Care Condition: Stable Instructions: Acute Bronchitis (ED) Additional Instructions: Take prednisone and antibiotics as prescribed. Use inhaler for shortness of breath. Albuterol 2 puffs every 2 hours while awake for 24 hours, then 2 puffs every 3 hours while awake for 24 hours, then 2 puffs every 4 hours as needed Activity Level: Activity as Tolerated Discharge Diet: Regular Prescriptions: No Action aspirin 81 mg capsule 81 mg PO QDAY omega 6-wmw-qky-fish oil [Fish Oil] 300-1,000 mg capsule 1 cap PO BID multivitamin Tablet 1 tab PO QAM losartan 25 mg tablet 25 mg PO QDAY calcium-vitamin D3-vitamin K [Viactiv] 650 mg-12.5 mcg-40 mcg tablet,chewable 2 tab PO DAILY potassium chloride 10 mEq capsule, extended release 10 meq PO QDAY Qty: 90 3RF (DME) oxygen-air delivery systems [[employer] [facility]] .ROUTE omeprazole 20 mg capsule,delayed release(DR/EC) 20 mg PO QDAY Qty: 90 3RF simvastatin 20 mg tablet 20 mg PO QHS Qty: 90 3RF furosemide 20 mg tablet 20 mg PO QAM Qty: 90 3RF levothyroxine 125 mcg tablet 125 mcg PO QDAY Qty: 90 1RF fluoxetine 40 mg capsule 40 mg PO QDAY Qty: 90 1RF hydrochlorothiazide 25 mg tablet 25 mg PO BID Qty: 180 1RF Follow Up/Referrals: Jack Guerrero MD [Primary Care Provider, Family Practice] Stand Alone Forms: [employer]intonic Info Instructions
--- NOTE | 2024-11-28 16:08 | CRLHL7_ITS ---
For Patients: As a result of the Century Cures Act, medical imaging exams and procedure reports are released immediately into your electronic medical record. You may view this report before your referring provider. If you have questions, please contact your health care provider. Indication: Cough Comparison: Two-view chest November 18, 2024 Technique: PA and lateral views of the chest Findings: Extensive interstitial and airspace opacities are seen throughout the bilateral hemithoraces with somewhat increased interstitial markings from comparison which may represent worsening edema and/or infiltrates. There is no pneumothorax. The cardiac silhouette is otherwise stable. The bony thorax is grossly intact. Impression: Redemonstration of extensive interstitial and airspace opacities with somewhat increased interstitial opacity from previous exam which may represent developing pulmonary edema with superimposed fibrotic changes. Dictated by Jean-Paul Douglass MD @ 11/28/2024 5:06:21 PM (Electronically Signed)
== END 2024-11-28 17:35 | disposition home or self-care (01) ==
PROVIDERS: Emergency Provider Family Medicine; PCP Family Medicine
DX: J22 Unspecified acute lower respiratory infection (principal); J84.10 Pulmonary fibrosis, unspecified; I10 Essential (primary) hypertension
CPT/HCPCS: 71046; 99283; 99284

== ENCOUNTER 2025-01-14 04:58 | Outpatient (CLI) | payer MEDICARE, BC, SELFPAY | END 2025-01-14 04:59 | disposition home or self-care (01) | LOC: AMB 01-18 18:40 | PROVIDERS: PCP Family Medicine; Visit Provider Internal Medicine | DX: R68.83 Chills (without fever) (principal) | CPT/HCPCS: A0998 ==